=== PATIENT | female | born 1975 | race Caucasian/White ===

== ENCOUNTER → 2018-03-09 | Outpatient (CLI) | payer BC ==
[2015-09-24 12:39] VITALS: BP 108/67
[~2018-03-09] MED LIST: CYCL10TA2 PO; OMEP20CA9 PO; ROPI1TAB PO
--- NOTE | 2018-03-09 13:01 | RAD ---
EXAM: Nuclear gastric emptying scan. HISTORY: Dysphagia. Vomiting. COMPARISON: None. TECHNIQUE: Serial static images were obtained over the stomach following oral administration of 2.0 mCi of 99m-Tc sulfur colloid in an egg based meal. FINDINGS: The stomach empties into the small bowel without evidence of reflux in the area of the esophagus. The estimated time for half emptying of gastric contents, i.e. 'gastric emptying time' is 55 minutes (normal is 66 +/- 22 minutes). There is 45% retained tracer activity within the stomach at one hour, 13% retained tracer activity within the stomach at 2 hours, 2% retained tracer activity within the stomach at 3 hours on 0% retained tracer activity within the stomach at 4 hours. IMPRESSION: Normal gastric imaging scan. No evidence of delayed gastric emptying. Electronically signed by: Dot Gracia MD (03/09/2018 12:57 PM) [facility]
== END | disposition home or self-care (01) ==
LOC: NM 08:09
PROVIDERS: ATTEND Internal Medicine Gastroenterology
DX: R11.10 Vomiting, unspecified (principal)
CPT/HCPCS: 78264; A9541

== ENCOUNTER → 2018-03-17 | Outpatient (CLI) | payer BC ==
[2015-09-24 12:39] VITALS: BP 108/67
[~2018-03-17] MED LIST changes: +BARIUM SULFATE 40% (APPLE) 148 GM PWD. PO ONE
--- NOTE | 2018-03-17 13:23 | RAD ---
Video dysphasia study, 03/17/2018: History: Dysphasia The swallowing mechanism was examined fluoroscopically in the lateral projection while the patient ingested a variety of food materials mixed with barium. 1.0 minutes of fluoroscopy time was utilized. One video fluoroscopic loop was recorded by a member of the speech Department. The patient demonstrated good oral control of the barium materials. There is prompt initiation of pharyngeal peristalsis. There is normal passage of the majority of the barium bolus through the cervical esophagus. No significant laryngeal penetration or aspiration occurred. The patient ingested the thicker materials and barium coated solids and utilized a straw without difficulty. IMPRESSION: No significant abnormality is detected.
== END | disposition home or self-care (01) ==
LOC: RAD 13:02
PROVIDERS: ATTEND Internal Medicine Gastroenterology
DX: R13.19 Other dysphagia (principal)
CPT/HCPCS: 74230; 92611

== ENCOUNTER 2018-04-22 09:00 | Emergency (ER) | payer BC ==
[~2018-04-22] VITALS: Ht 149.9 cm; Wt 46.7 kg
[~2018-04-22 09:00] MED LIST changes: -BARIUM SULFATE 40% (APPLE) 148 GM PWD. PO ONE
[2018-04-22] MEDS ORDERED: IV NORMAL SALINE 1000ML BAG 1,000 ML IV SCH (09:13)
[2018-04-22] MEDS ORDERED: LIDO:MAALOX 1:1 20 ML SINGLE DOSE. SWSW ONE (09:15)
--- NOTE | 2018-04-22 09:20 | EKG ---
[facility] [address] [place] [address] Test Date: 2018-04-22 Test Time: 09:17:29 Pat Name: PRISCILLA IBARRA Department: Room: Gender: F Valet Manager: ANGEL : 1975 Requested By: GREOGR OLIVO Order Number: [id number] Reading MD: Atilio Velázquez Measurements Intervals [place] Rate: 90 P: 117 VA: 136 QRS: 85 QRSD: 84 T: 47 QT: 346 QTc: 427 Interpretive Statements SINUS RHYTHM LEFT ATRIAL ABNORMALITY NONSPECIFIC ST-T WAVE CHANGES. Electronically Signed On 04-22-2018 9:55:56 CEMENT TESTER ASSISTANT by Atilio Velázquez
--- NOTE | 2018-04-22 09:21 | PHYS DOC ---
Past Medical History Past Medical History: Other Additional Past Medical Histor: RLS, chronic back pain Past Surgical History: Appendectomy, Hysterectomy Additional Past Surgical Histo: right foot surgery, left ear Alcohol Use: None Drug Use: None Adult General Chief Complaint Chief Complaint: NAUSEA/VOMITING/DIARRHA HPI HPI Patient is a 42-year-old female who presents to the emergency department for evaluation. She states that overnight she began experiencing epigastric abdominal discomfort, and had a few episodes of "coffee ground" emesis. She states that she had an upper endoscopy about 2 weeks ago, because she had a fullness in her throat and had been diagnosed with GERD, and she states that the clothes drier assembler told her that she had "bile" in her stomach, the etiology of which was uncertain. She has not had any black or bloody stools. Other than focal epigastric discomfort, she denies having any current pain. She has not had any fevers or chills. She denies any chest pain shortness of breath. She has not had any dizziness or lightheadedness. She does not take any PPIs. There are no alleviating or exacerbating factors to her symptoms. Review of Systems Review of Systems Constitutional: Denies fever or chills [] Eyes: Denies change in visual acuity, redness, or eye pain [] HENT: Denies nasal congestion or sore throat [] Respiratory: Denies cough or shortness of breath [] Cardiovascular: The patient denies any shortness of breath, chest pain, palpitations, or orthopnea [] GI: No additional information not addressed in HPI [] : Denies dysuria or hematuria [] Musculoskeletal: Denies back pain or joint pain [] Integument: Denies rash or skin lesions [] Neurologic: Denies headache, focal weakness or sensory changes [] Endocrine: Denies polyuria or polydipsia [] All other systems were reviewed and found to be within normal limits, except as documented in this note. Current Medications Current Medications Current Medications Medications (Trade) Dose Ordered Sig/Freddy Start Time Stop Time Status Last Admin Dose Admin Morphine Sulfate (Morphine Sulfate) 4 mg 1X ONCE 04/22/18 10:30 04/22/18 10:31 DC 04/22/18 10:41 4 MG Multi-Ingredient Mouthwash/Gargle (Gi Cocktail) 20 ml 1X ONCE 04/22/18 09:15 04/22/18 09:16 DC 04/22/18 09:33 20 ML Ondansetron HCl (Zofran) 4 mg STK-MED ONCE 04/22/18 09:31 04/22/18 09:32 DC Sodium Chloride 1,000 ml @ 1,000 mls/hr Q1H 04/22/18 09:13 04/22/18 10:12 DC 04/22/18 09:33 1,000 MLS/HR Allergies Allergies Allergies Coded Allergies Type Severity Reaction Last Updated Verified Penicillins Allergy Intermediate NAUSEA AND VOMITING 02/16/14 Yes diphenhydramine Allergy Intermediate MUSCLE SPASMS 02/16/14 Yes erythromycin base Allergy Intermediate NAUSEA AND VOMITING 02/16/14 Yes Physical Exam Physical Exam PHYSICAL EXAM: CONSTITUTIONAL: Well developed, well nourished HEAD: normocephalic, atraumatic EENT: PERRL, EOMI. Conjunctivae normal color, sclerae non-icteric; moist mucous membranes. NECK: Supple, non-tender; no meningismus. LUNGS: Lungs CTA, breathing even and unlabored. Normal air movement. HEART: Regular rate and rhythm, no murmur CHEST: No deformity; non-tender ABDOMEN: The abdomen is soft, there is focal epigastric tenderness to palpation , without any rebound or guarding. Normal bowel sounds are present. The remainder of the abdomen, including the right upper quadrant, is soft and non- tender, no masses or bruits. Cade's sign is absent EXTREM: Normal ROM; no deformity, no calf tenderness. Normal pulses palpable in all extremities. There is no pedal edema. SKIN: No rash; no diaphoresis NEURO: Alert; normal speech and cognition; CN's grossly intact; strength grossly intact without focal deficit. BACK: No CVA TTP. Current Patient Data Vital Signs Vital Signs Date Time Temp Pulse Resp B/P (MAP) Pulse Ox O2 Delivery O2 Flow Rate FiO2 04/22/18 10:41 16 97 Room Air 04/22/18 10:12 78 112/67 (82) 04/22/18 09:05 98.0 98.0 Lab Values Laboratory Tests Test 04/22/18 09:05 04/22/18 09:10 04/22/18 09:27 Urine Collection Type Unknown Urine Color Yellow Urine Clarity Clear Urine pH 6.0 Urine Specific [place] 1.015 Urine Protein Negative mg/dL (NEG-TRACE) Urine Glucose (UA) Negative mg/dL (NEG) Urine Ketones (Stick) Negative mg/dL (NEG) Urine Blood Small (NEG) Urine Nitrite Negative (NEG) Urine Bilirubin Negative (NEG) Urine Urobilinogen Dipstick 0.2 mg/dL (0.2 mg/dL) Urine Leukocyte Esterase Negative (NEG) Urine RBC 1-2 /HPF (0-2) Urine WBC 1-4 /HPF (0-4) Urine Squamous Epithelial Cells Mod /LPF Urine Bacteria Few /HPF (0-FEW) Urine Mucus Mod /LPF Stool Occult Blood Negative (NEG) White Blood Count 10.8 x10^3/uL (4.0-11.0) Red Blood Count 4.94 x10^6/uL (3.50-5.40) Hemoglobin 15.3 g/dL (12.0-15.5) Hematocrit 43.5 % (36.0-47.0) Mean Corpuscular Volume 88 fL (79-100) Mean Corpuscular Hemoglobin 31 pg (25-35) Mean Corpuscular Hemoglobin Concent 35 g/dL (31-37) Red Cell Distribution Width 12.9 % (11.5-14.5) Platelet Count 268 x10^3/uL (140-400) Neutrophils (%) (Auto) 50 % (31-73) Lymphocytes (%) (Auto) 39 % (24-48) Monocytes (%) (Auto) 8 % (0-9) Eosinophils (%) (Auto) 2 % (0-3) Basophils (%) (Auto) 1 % (0-3) Neutrophils # (Auto) 5.4 x10^3uL (1.8-7.7) Lymphocytes # (Auto) 4.2 x10^3/uL (1.0-4.8) Monocytes # (Auto) 0.9 x10^3/uL (0.0-1.1) Eosinophils # (Auto) 0.2 x10^3/uL (0.0-0.7) Basophils # (Auto) 0.1 x10^3/uL (0.0-0.2) Sodium Level 135 mmol/L (136-145) L Potassium Level 4.3 mmol/L (3.5-5.1) Chloride Level 101 mmol/L (98-107) Carbon Dioxide Level 25 mmol/L (21-32) Anion Gap 9 (6-14) Blood Urea Nitrogen 6 mg/dL (7-20) L Creatinine 0.6 mg/dL (0.6-1.0) Estimated GFR (Cockcroft-Gault) 110.7 BUN/Creatinine Ratio 10 (6-20) Glucose Level 90 mg/dL (70-99) Calcium Level 9.3 mg/dL (8.5-10.1) Total Bilirubin 0.2 mg/dL (0.2-1.0) Aspartate Amino Transferase (AST) 12 U/L (15-37) L Alanine Aminotransferase (ALT) 16 U/L (14-59) Alkaline Phosphatase 76 U/L (46-116) Troponin I Quantitative < 0.017 ng/mL (0.000-0.055) Total Protein 6.7 g/dL (6.4-8.2) Albumin 3.6 g/dL (3.4-5.0) Albumin/Globulin Ratio 1.2 (1.0-1.7) Lipase 436 U/L (73-393) H Laboratory Tests 04/22/18 09:27 Laboratory Tests 04/22/18 09:27 EKG EKG [Normal sinus rhythm a rate of 90 beats for minute, normal axis, normal intervals, nonspecific ST/T changes.] Radiology/Procedures Radiology/Procedures [] Course & Med Decision Making Course & Med Decision Making Pertinent Labs and Imaging studies reviewed. (See chart for details) []The patient's condition remained stable. I discussed test results with the patient, the need for close follow-up, and return precautions. I discussed the case with the patient's clothes drier assembler, Dr. Engle, who will see the patient in the office in follow-up and recommended adding Carafate. Dragon Disclaimer Dragon Disclaimer This electronic medical record was generated, in whole or in part, using a voice recognition dictation system. Departure Departure Impression: Primary Impression: Pancreatitis Disposition: 01 HOME, SELF-CARE Condition: STABLE Referrals: KELSEY ALEXANDRA MD (PCP) LAURO ENGLE MD Patient Instructions: Abdominal Pain, Acute Pancreatitis, Gastritis, Adult Scripts Ondansetron Hcl (ZOFRAN) 4 Mg Tablet 1 TAB PO Q6HRS PRN for NAUSEA/VOMITING, #20 TAB Prov: GREGOR OLIVO MD 04/22/18 Sucralfate (CARAFATE) 1 Gm Tablet 1 TAB PO QID, #120 TAB 1 Refill Prov: GREGOR OLIVO MD 04/22/18 Omeprazole (OMEPRAZOLE) 20 Mg Capsule.dr 20 MG PO DAILY for 30 Days, #30 CAP Prov: GREGOR OLIVO MD 04/22/18 Oxycodone/Apap 5-325 (PERCOCET 5-325 MG TABLET ) 1 Each Tablet 1 TAB PO QID, #20 TAB Prov: GREGOR OLIVO MD 04/22/18 GREGOR OLIVO MD Apr 22, 2018 09:21
[2018-04-22 09:28] LABS: BILIRUBIN,URINE NEGATIVE (NEG); CLARITY,URINE CLEAR; COLOR,URINE YELLOW; NITRITE,URINE NEGATIVE (NEG); PROTEIN,URINE NEGATIVE (NEG-TRACE); UROBILINOGEN,URINE 0.2 mg/dL (0.2 mg/dL)
[2018-04-22] MEDS ORDERED: ONDANSETRON PF 4 MG/2 ML VIAL. ONE (09:31)
[2018-04-22 09:37] LABS: FECAL OB PT NEGATIVE (NEG)
[2018-04-22 09:38] LABS: SQUAMOUS EPITHELIAL CELL,UR MOD /LPF
[2018-04-22 09:38] LABS: BASO # 0.1 x10^3/uL (0.0-0.2); BASO % 1 % (0-3); EOS # 0.2 x10^3/uL (0.0-0.7); EOS % 2 % (0-3); HEMATOCRIT 43.5 % (36.0-47.0); HEMOGLOBIN 15.3 g/dL (12.0-15.5); LYMPH # 4.2 x10^3/uL (1.0-4.8); LYMPH % 39 % (24-48); MEAN CORPUSCULAR HEMOGLOBIN 31 pg (25-35); MEAN CORPUSCULAR HGB CONC 35 g/dL (31-37); MEAN CORPUSCULAR VOLUME 88 fL (79-100); MONO # 0.9 x10^3/uL (0.0-1.1); MONO % 8 % (0-9); NEUT # 5.4 x10^3uL (1.8-7.7); NEUT % 50 % (31-73); PLATELET COUNT 268 x10^3/uL (140-400); RED BLOOD COUNT 4.94 x10^6/uL (3.50-5.40); RED CELL DISTRIBUTION WIDTH 12.9 % (11.5-14.5); WHITE BLOOD COUNT 10.8 x10^3/uL (4.0-11.0)
[2018-04-22 09:39] LABS: BACTERIA,URINE FEW /HPF (0-FEW)
[2018-04-22] MEDS ORDERED: ONDANSETRON PF 4 MG/2 ML VIAL. IV ONE (09:45)
[2018-04-22 10:04] LABS: CALCIUM 9.3 mg/dL (8.5-10.1); CREATININE 0.6 mg/dL (0.6-1.0); GFR 110.7; POTASSIUM 4.3 mmol/L (3.5-5.1)
[2018-04-22 10:12] VITALS: BP 112/67
[2018-04-22 10:18] LABS: ALBUMIN 3.6 g/dL (3.4-5.0); ALBUMIN/GLOBULIN RATIO 1.2 (1.0-1.7); TOTAL BILIRUBIN 0.2 mg/dL (0.2-1.0); TOTAL PROTEIN 6.7 g/dL (6.4-8.2)
[2018-04-22] MEDS ORDERED: MORPHINE SULFATE 4 MG/ML VIAL. IV ONE (10:30)
[2018-04-22] MEDS ORDERED: OXYC1TAB15 PO (10:50)
[2018-04-22] MEDS ORDERED: OMEP20CA9 PO (10:51)
[2018-04-22] MEDS ORDERED: SUCR1TAB35 PO (10:59)
[2018-04-22] MEDS ORDERED: ONDA4TAB7 PO (11:07)
== END 2018-04-22 10:59 | disposition home or self-care (01) ==
LOC: ER 09:00
DX: K85.90 Acute pancreatitis without necrosis or infection, unspecified (principal); G89.29 Other chronic pain; Z90.89 Acquired absence of other organs; Z90.710 Acquired absence of both cervix and uterus; Z88.0 Allergy status to penicillin; Z88.1 Allergy status to other antibiotic agents; Z88.8 Allergy status to other drugs, medicaments and biological substances
CPT/HCPCS: 36415; 80053; 81001; 82274; 83690; 84484; 85025; 93005; 96361; 96374; 96375; 99284; J2270; J2405; J7030

== ENCOUNTER 2018-05-07 19:13 | Emergency (ER) | payer BC ==
[~2018-05-07] VITALS: Ht 149.9 cm; Wt 45.4 kg
[~2018-05-07 19:13] MED LIST changes: +ONDA4TAB7 PO; +OXYC1TAB15 PO; +SUCR1TAB35 PO
[2018-05-07] MEDS ORDERED: IV NORMAL SALINE 1000ML BAG 1,000 ML IV ONE (20:00)
[2018-05-07] MEDS ORDERED: MORPHINE SULFATE 4 MG/ML VIAL. IV ONE (20:00)
[2018-05-07] MEDS ORDERED: ONDANSETRON PF 4 MG/2 ML VIAL. IV ONE (20:00)
[2018-05-07 20:09] LABS: BASO # 0.1 x10^3/uL (0.0-0.2); BASO % 1 % (0-3); EOS # 0.2 x10^3/uL (0.0-0.7); EOS % 2 % (0-3); HEMATOCRIT 45.5 % (36.0-47.0); HEMOGLOBIN 15.9 g/dL (12.0-15.5); LYMPH # 4.1 x10^3/uL (1.0-4.8); LYMPH % 30 % (24-48); MEAN CORPUSCULAR HEMOGLOBIN 31 pg (25-35); MEAN CORPUSCULAR HGB CONC 35 g/dL (31-37); MEAN CORPUSCULAR VOLUME 89 fL (79-100); MONO % 7 % (0-9); NEUT # 8.1 x10^3uL (1.8-7.7); NEUT % 60 % (31-73); PLATELET COUNT 281 x10^3/uL (140-400); RED BLOOD COUNT 5.13 x10^6/uL (3.50-5.40); RED CELL DISTRIBUTION WIDTH 13.3 % (11.5-14.5); WHITE BLOOD COUNT 13.4 x10^3/uL (4.0-11.0)
[2018-05-07 20:10] LABS: BILIRUBIN,URINE NEGATIVE (NEG); CLARITY,URINE CLEAR; COLOR,URINE YELLOW; NITRITE,URINE NEGATIVE (NEG); PROTEIN,URINE NEGATIVE (NEG-TRACE); UROBILINOGEN,URINE 0.2 mg/dL (0.2 mg/dL)
[2018-05-07 20:15] LABS: BACTERIA,URINE FEW /HPF (0-FEW); SQUAMOUS EPITHELIAL CELL,UR MOD /LPF; WBC,URINE OCC /HPF (0-4)
[2018-05-07] MEDS ORDERED: CONTRAST GIVEN. MC PRN (20:15)
[2018-05-07] MEDS ORDERED: IOHEXOL 300 MG/ML 100ML VIAL. IV ONE (20:15)
[2018-05-07 20:17] LABS: CALCIUM 9.1 mg/dL (8.5-10.1); CREATININE 0.9 mg/dL (0.6-1.0); GFR 69.3; POTASSIUM 3.8 mmol/L (3.5-5.1)
[2018-05-07 20:24] LABS: ALBUMIN 3.8 g/dL (3.4-5.0); DIRECT BILIRUBIN 0.1 mg/dL (0.0-0.2); TOTAL BILIRUBIN 0.2 mg/dL (0.2-1.0); TOTAL PROTEIN 7.4 g/dL (6.4-8.2)
--- NOTE | 2018-05-07 20:42 | PHYS DOC ---
Past Medical History Past Medical History: Depression, Pancreatitis, Other Additional Past Medical Histor: RLS, chronic back pain Past Surgical History: Appendectomy, Hysterectomy Additional Past Surgical Histo: right foot surgery, left ear Additional Information: 1 PPD Alcohol Use: None Drug Use: None Adult General Chief Complaint Chief Complaint: ABDOMINAL PAIN [facility] HPI Patient is a 42 year old female who presents with abdominal pain. Patient states she had onset of epigastric pain around 4:30 this afternoon after eating food. She ate hamburger helper prior to onset of symptoms. Since then, she has had severe pain in the epigastric area. Pain is nonradiating. She has some nausea but no emesis. No diarrhea. She denies urinary symptoms. She does have a prior history of similar episode in September of this year when she was told she had pancreatitis. Patient does not drink alcohol. Review of Systems Review of Systems Constitutional: Denies fever or chills Eyes: Denies change in visual acuity HENT: Denies nasal congestion Respiratory: Denies cough or shortness of breath Cardiovascular: No additional information not addressed in HPI GI: Denies abdominal pain, nausea : Denies dysuria or hematuria Musculoskeletal: Denies back pain Integument: Denies rash or skin lesions Neurologic: Denies headache, focal weakness All other systems were reviewed and found to be within normal limits, except as documented in this note. Current Medications Current Medications Current Medications Medications (Trade) Dose Ordered Sig/Freddy Start Time Stop Time Status Last Admin Dose Admin Info (CONTRAST GIVEN -- Rx MONITORING) 1 each PRN DAILY PRN 05/07/18 20:15 05/08/18 00:30 DC Iohexol (Omnipaque 300 Mg/ml) 75 ml 1X ONCE 05/07/18 20:15 05/07/18 20:16 DC 05/07/18 21:00 75 ML Morphine Sulfate (Morphine Sulfate) 6 mg 1X ONCE 05/07/18 23:15 05/07/18 23:16 DC 05/07/18 23:23 6 MG Multi-Ingredient Mouthwash/Gargle (Gi Cocktail) 20 ml 1X ONCE 05/07/18 20:45 05/07/18 20:46 DC 05/07/18 20:48 20 ML Ondansetron HCl (Zofran) 4 mg 1X ONCE 05/07/18 20:00 05/07/18 20:01 DC 05/07/18 20:11 4 MG Sodium Chloride 1,000 ml @ 1,000 mls/hr 1X ONCE 05/07/18 20:00 05/07/18 20:59 DC 05/07/18 20:10 1,000 MLS/HR Allergies Allergies Allergies Coded Allergies Type Severity Reaction Last Updated Verified Penicillins Allergy Intermediate NAUSEA AND VOMITING 02/16/14 Yes diphenhydramine Allergy Intermediate MUSCLE SPASMS 02/16/14 Yes erythromycin base Allergy Intermediate NAUSEA AND VOMITING 02/16/14 Yes Physical Exam Physical Exam Constitutional: Well developed, well nourished, no acute distress, non-toxic appearance HENT: Normocephalic, atraumatic, bilateral external ears normal, oropharynx moist Eyes: PERRLA, EOMI, conjunctiva normal Neck: Normal range of motion, no tenderness Cardiovascular:Heart rate regular rhythm, no murmur Lungs & Thorax: Bilateral breath sounds clear to auscultation Abdomen: Bowel sounds normal, soft, TTP over epigastrium. No guarding or rebound Skin: Warm, dry, no erythema, no rash Extremities: No tenderness, no edema Neurologic: Alert and oriented X 3 Psychologic: Affect normal Current Patient Data Vital Signs Vital Signs Date Time Temp Pulse Resp B/P (MAP) Pulse Ox O2 Delivery O2 Flow Rate FiO2 05/07/18 23:25 78 20 90/48 (62) 96 05/07/18 23:23 Room Air 05/07/18 19:15 97.8 97.8 Lab Values Laboratory Tests Test 05/07/18 19:25 White Blood Count 13.4 x10^3/uL (4.0-11.0) H Red Blood Count 5.13 x10^6/uL (3.50-5.40) Hemoglobin 15.9 g/dL (12.0-15.5) H Hematocrit 45.5 % (36.0-47.0) Mean Corpuscular Volume 89 fL (79-100) Mean Corpuscular Hemoglobin 31 pg (25-35) Mean Corpuscular Hemoglobin Concent 35 g/dL (31-37) Red Cell Distribution Width 13.3 % (11.5-14.5) Platelet Count 281 x10^3/uL (140-400) Neutrophils (%) (Auto) 60 % (31-73) Lymphocytes (%) (Auto) 30 % (24-48) Monocytes (%) (Auto) 7 % (0-9) Eosinophils (%) (Auto) 2 % (0-3) Basophils (%) (Auto) 1 % (0-3) Neutrophils # (Auto) 8.1 x10^3uL (1.8-7.7) H Lymphocytes # (Auto) 4.1 x10^3/uL (1.0-4.8) Monocytes # (Auto) 1.0 x10^3/uL (0.0-1.1) Eosinophils # (Auto) 0.2 x10^3/uL (0.0-0.7) Basophils # (Auto) 0.1 x10^3/uL (0.0-0.2) Urine Collection Type Unknown Urine Color Yellow Urine Clarity Clear Urine pH 6.0 Urine Specific [place] <=1.005 Urine Protein Negative mg/dL (NEG-TRACE) Urine Glucose (UA) Negative mg/dL (NEG) Urine Ketones (Stick) Negative mg/dL (NEG) Urine Blood Small (NEG) Urine Nitrite Negative (NEG) Urine Bilirubin Negative (NEG) Urine Urobilinogen Dipstick 0.2 mg/dL (0.2 mg/dL) Urine Leukocyte Esterase Negative (NEG) Urine RBC 1-2 /HPF (0-2) Urine WBC Occ /HPF (0-4) Urine Squamous Epithelial Cells Mod /LPF Urine Bacteria Few /HPF (0-FEW) Sodium Level 139 mmol/L (136-145) Potassium Level 3.8 mmol/L (3.5-5.1) Chloride Level 103 mmol/L (98-107) Carbon Dioxide Level 25 mmol/L (21-32) Anion Gap 11 (6-14) Blood Urea Nitrogen 9 mg/dL (7-20) Creatinine 0.9 mg/dL (0.6-1.0) Estimated GFR (Cockcroft-Gault) 69.3 Glucose Level 90 mg/dL (70-99) Calcium Level 9.1 mg/dL (8.5-10.1) Total Bilirubin 0.2 mg/dL (0.2-1.0) Direct Bilirubin 0.1 mg/dL (0.0-0.2) Aspartate Amino Transferase (AST) 11 U/L (15-37) L Alanine Aminotransferase (ALT) 16 U/L (14-59) Alkaline Phosphatase 80 U/L (46-116) Total Protein 7.4 g/dL (6.4-8.2) Albumin 3.8 g/dL (3.4-5.0) Lipase 136 U/L (73-393) Laboratory Tests 05/07/18 19:25 Laboratory Tests 05/07/18 19:25 EKG EKG [] Radiology/Procedures Radiology/Procedures Findings: There is no abnormality limited visualized lung bases. There is no adrenal nodularity. No focal abnormality is identified of the liver or pancreas. There is elongation of the right lobe of the liver. There is a hypodense lesion of the anterior lateral aspect of the spleen about 1.1 cm, density measurements 31 Hounsfield units not of a simple cyst. Both kidneys enhance, no hydronephrosis. Gallbladder is present without obvious intraluminal abnormality by CT. There is fairly prominent distention of the urinary bladder. There may be left adnexal cyst versus 2 adjacent cysts about 2.8 cm in size although density measurements greater than a simple cyst and difficult to discern from normal left ovary. Evaluation of bowel is limited due to the paucity of intra-abdominal and intrapelvic fat as well as lack of oral contrast. There are segments of more thick walled and slightly prominent caliber small bowel left abdomen, maximal caliber about 3.1 cm. No free air is identified. No definitive extraluminal fluid collection is identified. Appendix is not confidently identified. IMPRESSION: 1. There are somewhat thick walled segments of slightly dilated small bowel in the left abdomen, evidence of enteritis. Evaluation of bowel is limited without oral contrast and also due to the paucity of intra-abdominal and intrapelvic fat. 2. There is likely left adnexal cyst or 2 adjacent cysts, no significant free fluid. 3. There is fairly prominent distention of the urinary bladder. 4. There is small indeterminate hypodense lesion of the spleen, could be benign etiology such as hemangioma although otherwise cannot be further characterized on this exam. Course & Med Decision Making Course & Med Decision Making Pertinent Labs and Imaging studies reviewed. (See chart for details) 20:00: Patient is evaluated and examined. She currently complains of primarily abdominal pain described above. No nausea or vomiting. Standard abdominal pain workup with urinalysis and CT is ordered. Patient was evaluated in the emergency department for upper abdomen pain. In the emergency room she was given a GI cocktail and some pain medications which did improve her symptoms. Upon further discussions with the patient, she has a long-standing history of GERD and acid type problems. She already has follow-up scheduled with a GI doctor on the of this month. Her CT scan was not revealing for acute findings other than some enteritis. I offered the patient ultrasound of the right upper quadrant for more thorough evaluation of the gallbladder to make sure this is not a source of her symptoms although the gallbladder was visualized on the CT scan. The patient declined interest in pursuing this study. She was ready for discharge home and requesting her paperwork. She was sent home with a prescription for some [place]. Acid precautions were discussed. I recommended a clear liquid diet for the next 0.4 hours. The patient will contact her GI doctor in the morning for sooner follow- up appointment or return to the ER for any new or worsening symptoms. Dragon Disclaimer Dragon Disclaimer This electronic medical record was generated, in whole or in part, using a voice recognition dictation system. Departure Departure Disposition: 01 HOME, SELF-CARE Condition: GOOD Referrals: KELSEY ALEXANDRA MD (PCP) Scripts Ondansetron (ONDANSETRON ODT) 4 Mg Tab.rapdis 4 MG PO TID PRN for NAUSEA/VOMITING, #20 TAB Prov: NEHA MARISCAL DO 05/07/18 Oxycodone/Apap 5-325 (PERCOCET 5-325 MG TABLET ) 1 Each Tablet 1 TAB PO PRN Q6HRS PRN for PAIN, #30 TAB 0 Refills Prov: NEHA MARISCAL DO 05/07/18 NEHA MARISCAL DO May 07, 2018 20:42
[2018-05-07] MEDS ORDERED: LIDO:MAALOX 1:1 20 ML SINGLE DOSE. PO ONE (20:45)
--- NOTE | 2018-05-07 21:39 | RAD ---
CT ABD PELV W/ IV CONTRST ONLY Indication: Severe epigastric pain Technique: Postcontrast CT imaging was performed of the abdomen and pelvis, multiplanar reconstruction images submitted. No oral contrast was given. One or more of the following individualized dose reduction techniques were utilized for this examination: 1. Automated exposure control 2. Adjustment of the mA and/or kV according to patient size 3. Use of iterative reconstruction technique. Comparison: None Findings: There is no abnormality limited visualized lung bases. There is no adrenal nodularity. No focal abnormality is identified of the liver or pancreas. There is elongation of the right lobe of the liver. There is a hypodense lesion of the anterior lateral aspect of the spleen about 1.1 cm, density measurements 31 Hounsfield units not of a simple cyst. Both kidneys enhance, no hydronephrosis. Gallbladder is present without obvious intraluminal abnormality by CT. There is fairly prominent distention of the urinary bladder. There may be left adnexal cyst versus 2 adjacent cysts about 2.8 cm in size although density measurements greater than a simple cyst and difficult to discern from normal left ovary. Evaluation of bowel is limited due to the paucity of intra-abdominal and intrapelvic fat as well as lack of oral contrast. There are segments of more thick walled and slightly prominent caliber small bowel left abdomen, maximal caliber about 3.1 cm. No free air is identified. No definitive extraluminal fluid collection is identified. Appendix is not confidently identified. IMPRESSION: 1. There are somewhat thick walled segments of slightly dilated small bowel in the left abdomen, evidence of enteritis. Evaluation of bowel is limited without oral contrast and also due to the paucity of intra-abdominal and intrapelvic fat. 2. There is likely left adnexal cyst or 2 adjacent cysts, no significant free fluid. 3. There is fairly prominent distention of the urinary bladder. 4. There is small indeterminate hypodense lesion of the spleen, could be benign etiology such as hemangioma although otherwise cannot be further characterized on this exam. Electronically signed by: Vignesh Banks MD (05/07/2018 9:35 PM) [facility]
[2018-05-07] MEDS ORDERED: MORPHINE SULFATE 10 MG/ML VIAL. IV ONE (23:15)
[2018-05-07 23:25] VITALS: BP 90/48
[2018-05-07] MEDS ORDERED: ONDA4TAB12 PO (23:49)
[2018-05-07] MEDS ORDERED: OXYC1TAB15 PO (23:49)
== END 2018-05-08 00:29 | disposition home or self-care (01) ==
LOC: ER 19:13
DX: R10.13 Epigastric pain (principal); R11.0 Nausea; F32.9 Major depressive disorder, single episode, unspecified; G89.29 Other chronic pain; F17.200 Nicotine dependence, unspecified, uncomplicated; Z90.89 Acquired absence of other organs; Z90.710 Acquired absence of both cervix and uterus; Z88.0 Allergy status to penicillin; Z88.1 Allergy status to other antibiotic agents; Z88.8 Allergy status to other drugs, medicaments and biological substances
CPT/HCPCS: 36415; 74177; 80048; 80076; 81001; 83690; 85025; 96374; 96375; 96376; 99284; J2270; J2405; J7030; Q9967